=== PATIENT | female | born 1975 | race Caucasian/White ===

== ENCOUNTER 2016-09-14 15:20 | Outpatient (CLI) | payer OTHER ==
--- NOTE | 2016-09-14 20:28 | RAD ---
CERVICAL SPINE FOUR VIEWS: Date: 09-14-16 Comparison: 11-29-14 FINDINGS: Flexion, extension, and neutral lateral views were obtained in addition to an AP view. There has been a prior anterior cervical fusion of C5 through C7. The synthetic discs at the fusion levels are appropriately placed and the vertebrae are fusing nicely at those levels. There is no m alalignment here or change in the appearance of the hardware. There is mild disc space narrowing at C4-5 with a small anterior osteophyte. This may have advanced slightly since 2015. The flexion and extension views show some mild anterolisthesis of C2 on C3 wi th flexion, but this was present before and has not really changed. Otherwise, there is no excessiv e movement. No fracture or soft tissue swelling was seen. IMPRESSION: 1. Status post anterior cervical fusion of C5 through C7 with a normal post-operative appearance. 2. Disc space narrowing and osteophytes at C4-5, perhaps a little more prominent than in 2015. An MRI could be useful at investigating this further, particularly if the patient has a radiculopathy. POS: HOME
== END 2016-09-14 15:21 | disposition home or self-care (01) ==
LOC: BURRAD 15:20
PROVIDERS: ATTEND Neurological Surgery
DX: M54.12 Radiculopathy, cervical region (principal)
CPT/HCPCS: 72050

== ENCOUNTER → 2019-04-08 | Emergency (ER) | payer OTHER ==
[~2019-04-08] MED LIST: Adacel (T-DAP) 0.5 ML SYRINGE ONE
== END ==
LOC: BURERS 23:39
DX: S81.852A Open bite, left lower leg, initial encounter (principal); F17.210 Nicotine dependence, cigarettes, uncomplicated; W59.11XA Bitten by nonvenomous snake, initial encounter
CPT/HCPCS: 90471; 90715